=== PATIENT | female | born 1985 | race Caucasian/White ===

== ENCOUNTER 2021-08-29 11:40 | Emergency (ER) | payer OTHER ==
[~2021-08-29] VITALS: Ht 162.6 cm; Wt 72.0 kg
[2021-08-29 13:00] VITALS: BP 127/78
== END 2021-08-29 13:39 ==
LOC: ER 11:40
DX: F41.9 Anxiety disorder, unspecified (principal); F32.A Depression, unspecified
CPT/HCPCS: 71045; 93005; 99283